=== PATIENT | female | born 1970 | race Hispanic/Latino ===

== ENCOUNTER 2021-10-17 08:53 | Outpatient (CLI) | payer OTHER | END 2021-10-17 08:54 | disposition home or self-care (01) | LOC: CSHCT 08:53 | PROVIDERS: ATTEND Internal Medicine Medical Oncology | DX: C50.411 Malignant neoplasm of upper-outer quadrant of right female breast (principal); C78.00 Secondary malignant neoplasm of unspecified lung; C79.51 Secondary malignant neoplasm of bone; R11.2 Nausea with vomiting, unspecified; N20.0 Calculus of kidney; N13.30 Unspecified hydronephrosis | CPT/HCPCS: 71260; 74177 ==

== ENCOUNTER 2022-02-05 12:45 | Outpatient (CLI) | payer OTHER ==
[~2022-02-05 12:45] MED LIST: Iopamidol 300 61% 100 ML VIAL FS ONE
== END 2022-02-05 12:46 | disposition home or self-care (01) ==
LOC: CSHCT 12:45
PROVIDERS: ATTEND Internal Medicine Medical Oncology
DX: C50.411 Malignant neoplasm of upper-outer quadrant of right female breast (principal); C79.51 Secondary malignant neoplasm of bone; R19.00 Intra-abdominal and pelvic swelling, mass and lump, unspecified site; R91.8 Other nonspecific abnormal finding of lung field
CPT/HCPCS: 71260; 74177; Q9967